=== PATIENT | male | born 1955 | race Caucasian/White ===

== ENCOUNTER 2024-03-26 06:30 | Day surgery (SDC) | payer MEDICARE, BC ==
[~2024-03-26 06:30] MED LIST: Morphine 8 MG, EPINEPHrine 0.3 MG, Cefuroxime 750 MG, Ketorolac 30 MG, Sodium Chloride ... PRN; Sodium Chloride 0.9% 10 ML Syringe FLUSH PRN; Sodium Chloride 0.9% 10 ML Syringe FLUSH SCH
[2024-03-26] MEDS: Lactated Ringers 1,000 ML IV SCH (07:00)
[2024-03-26] MEDS: Pregabalin 25 MG Cap PO ONE (07:11)
[2024-03-26] MEDS: Acetaminophen 325 MG Tab PO ONE (07:11)
[2024-03-26] MEDS: oxyCODONE ER 10 MG TAB.ER PO ONE (07:12)
[2024-03-26] MEDS ORDERED: Midazolam 1 MG/ML 2 ML SDV ONE (07:23)
[2024-03-26] MEDS ORDERED: fentaNYL 100 MCG/2 ML SDV ONE (07:23)
[2024-03-26] MEDS: Albuterol/Ipratropium 3.0-0.5 MG/3 ML Neb Soln NEB ONE (07:25)
[2024-03-26] MEDS ORDERED: Propofol 200 MG/20 ML SDV ONE ×2 (08:12→08:49)
[2024-03-26] MEDS ORDERED: Ondansetron 4 MG/2 ML SDV ONE (08:20)
[2024-03-26] MEDS ORDERED: ceFAZolin 2 GM Vial ONE (08:31)
[2024-03-26] MEDS ORDERED: Phenylephrine 1% 10 MG/ML SDV ONE (08:33)
[2024-03-26] MEDS ORDERED: Lactated Ringers 1,000 ML ONE (09:05)
[2024-03-26] MEDS: Tranexamic Acid 1,000 MG/10 ML Vial ONE (09:19)
[2024-03-26] MEDS: VANCOmycin 1 GM SDV ONE (09:19)
[2024-03-26] MEDS: Morphine 8 MG, EPINEPHrine 0.3 MG, Cefuroxime 750 MG, Ketorolac 30 MG, Sodium Chloride ... PRN (09:19)
[2024-03-26] MEDS ORDERED: Ondansetron 4 MG/2 ML SDV IVPUSH PRN (09:23)
[2024-03-26] MEDS ORDERED: HYDROmorphone 0.5 MG/0.5 ML Syringe IVPUSH PRN (09:23)
[2024-03-26] MEDS ORDERED: fentaNYL 100 MCG/2 ML SDV IVPUSH PRN (09:23)
[2024-03-26] MEDS: oxyCODONE 5 MG Tab PO PRN (13:23)
== END 2024-03-26 13:34 | disposition home or self-care (01) ==
LOC: JD.SDS 06:30
PROVIDERS: ATTEND Orthopaedic Surgery
DX: M16.12 Unilateral primary osteoarthritis, left hip (principal); I82.402 Acute embolism and thrombosis of unspecified deep veins of left lower extremity; I10 Essential (primary) hypertension; Z79.899 Other long term (current) drug therapy
CPT/HCPCS: 0055T; 27130; 36415; 73501; 86850; 86900; 86901; 97116; 97161; A9270; C1713; C1776; J0171; J0690; J0697; J1885; J2250; J2272; J2371; J2405; J2704; J3010; J7120; J3490; J7620-GY